=== PATIENT | male | born 1955 | race Caucasian/White ===

== ENCOUNTER → 2021-04-20 | Outpatient (CLI) | payer OTHER ==
[~2021-04-20] MED LIST: CEPH500 PO; HYDACE5 PO; TAMS.4ER PO; [UNRECOGNIZED DRUG - CODE] PO
== END | disposition home or self-care (01) ==
LOC: LAB SHORT 08:14
DX: C44.619 Basal cell carcinoma of skin of left upper limb, including shoulder (principal)
CPT/HCPCS: 88305

== ENCOUNTER → 2024-04-11 | Outpatient (CLI) | payer OTHER | LOC: LAB 07:48 → LAB SHORT 07:48 | DX: C44.519 Basal cell carcinoma of skin of other part of trunk (principal); D48.5 Neoplasm of uncertain behavior of skin | CPT/HCPCS: 88305 ==